=== PATIENT | male | born 1965 | race Caucasian/White ===

== ENCOUNTER → 2016-07-17 | Outpatient (CLI) | payer OTHER ==
--- NOTE | 2016-07-17 19:04 | DI ---
HISTORY: Left heel pain. FINDINGS: Examination reveals soft tissue swelling. There is no definite evidence of recent fractur e or dislocation. IMPRESSION: 1. Soft tissue swelling without acute fracture. If symptoms should persist a follow up examination after a suitable period of immobilization is suggested.
== END ==
LOC: RAD 17:14
DX: M79.672 Pain in left foot (principal); M79.89 Other specified soft tissue disorders
CPT/HCPCS: 73610